=== PATIENT | female | born 1955 | race African-American/Black ===

== ENCOUNTER 2024-12-01 20:48 | Emergency (ER) | payer OTHER ==
[2024-12-01 20:59] VITALS: BP 106/47; PULSE 84; RESP 18; TEMP 98.3; BMI 29.2
[2024-12-01] MEDS ORDERED: ACETAMINOPHEN 325 MG TABLET (FP) ONE (21:41)
[2024-12-01] MEDS ORDERED: LIDOCAINE 4% PATCH TP ONE (21:42)
[2024-12-01] MEDS: LIDOCAINE 4% PATCH TP ONE (21:48)
[2024-12-01] MEDS: ACETAMINOPHEN 500 MG TABLET (FP) PO ONE (21:49)
[2024-12-02] MEDS: LIDOCAINE PATCH REMOVAL MC SCH (00:20)
== END 2024-12-02 00:22 | disposition home or self-care (01) ==
LOC: JER 20:48
DX: S70.02XA Contusion of left hip, initial encounter (principal); W01.0XXA Fall on same level from slipping, tripping and stumbling without subsequent striking against object, initial encounter
CPT/HCPCS: 72170-TC-FY; 73521-TC-FY; 73552-TC-LT-FY; 73564-TC-LT-FY; 99283-25